=== PATIENT | female | born 1935 | race Caucasian/White ===

== ENCOUNTER 2019-07-08 14:03 | Observation (INO) ==
[2019-07-08] MEDS ORDERED: 0.9 % Sodium Chloride 1,000 ML IVC ONE (14:28)
[2019-07-08 15:03] LABS: Calcium 10.2 mg/dL (8.6-10.3); Potassium 4.1 mEq/L (3.5-5.1)
[2019-07-08 16:05] LABS: Bilirubin,Urine Negative (Negative); Blood,Urine Negative (Negative); Clarity,Urine Clear (Clear); Color,Urine Yellow (Yellow); Glucose,Urine (UA) 500 mg/dL (Normal); Ketones,Urine Negative (Negative); Leukocyte Esterase,Urine Negative (Negative); Nitrite,Urine Negative (Negative); Protein,Urine Negative (Neg-Trace); Urobilinogen,Urine Normal (Normal)
[2019-07-08] MEDS ORDERED: Ondansetron ODT 4 MG TAB.RAPDIS SL PRN (17:06)
[2019-07-08] MEDS ORDERED: Naloxone 0.4 MG/ML INJ IVP PRN (17:06)
[2019-07-08] MEDS ORDERED: D5% in Water 1,000 ML IVC PRN (17:09)
[2019-07-08] MEDS ORDERED: Dextrose Gel 15 GM/37.5 ML TUBE PO PRN ×2 (17:09)
[2019-07-08] MEDS ORDERED: *HR* Dextrose 50 % in Water (Vial) 50 ML VIAL IVP PRN (17:09)
[2019-07-08] MEDS ORDERED: 0.9 % Sodium Chloride 1,000 ML IV ONE (17:11)
[2019-07-08] MEDS: Insulin LISPRO 300 UNITS/3 ML VIAL SQ SCH ×3 (18:33→21:32)
[2019-07-08] MEDS: carvediloL 6.25 MG TABLET PO SCH (18:53)
[2019-07-08 20:39] LABS: Estimated Average Glucose 301 mg/dl
[2019-07-08] MEDS ORDERED: Lisinopril-HCTZ 20-12.5mg TABLET PO SCH (21:00)
[2019-07-08] MEDS: Apixaban 5 MG TABLET PO SCH (21:28)
[2019-07-08] MEDS: hydroCHLOROthiazide 25 MG TABLET PO SCH (21:29)
[2019-07-08] MEDS: lisinopriL 20 MG TABLET PO SCH (21:29)
[2019-07-08] MEDS: Insulin DETEMIR 100 UNIT/ML X5UNITS SQ SCH (21:31)
[2019-07-09 07:44] LABS: Hematocrit 40.8 % (35.3-44.9); Hemoglobin 13.7 g/dL (11.5-15.4); Mean Corpuscular HGB Conc 33.6 g/dL (31.6-35.5); Mean Corpuscular Hemoglobin 29.4 pg (28.0-33.3); Mean Corpuscular Volume 87.6 fL (83.0-100.0); Mean Platelet Volume 12.9 fL (9.4-12.4); Platelet Count 133 K/mcL (140-400); Red Blood Count 4.66 M/mcL (3.82-4.97); White Blood Count 8.8 K/mcL (4.3-11.1)
[2019-07-09] MEDS: Insulin LISPRO 300 UNITS/3 ML VIAL SQ SCH ×7 (07:51→21:03)
[2019-07-09 08:08] LABS: BUN/Creatinine Ratio 18 (6-26); Blood Urea Nitrogen 16 mg/dL (8-23); Calcium 9.8 mg/dL (8.6-10.3); Carbon Dioxide 23 mEq/L (23-29); Chloride 100 mEq/L (98-107); Glucose 118 mg/dL (70-105); Osmolality,Calculated 284 (280-300); Potassium 3.7 mEq/L (3.5-5.1); Sodium 136 mEq/L (136-145); eGFR For African Americans > 60 (> 60); eGFR For Non-African Americans > 60 (> 60)
[2019-07-09] MEDS: amLODIPine 5 MG TABLET PO SCH (08:51)
[2019-07-09] MEDS: Apixaban 5 MG TABLET PO SCH ×2 (08:51→21:03)
[2019-07-09] MEDS: hydroCHLOROthiazide 25 MG TABLET PO SCH ×2 (08:52→21:02)
[2019-07-09] MEDS: carvediloL 6.25 MG TABLET PO SCH ×2 (08:52→16:52)
[2019-07-09] MEDS: Magnesium Oxide 400 MG TABLET PO SCH (08:52)
[2019-07-09] MEDS: lisinopriL 20 MG TABLET PO SCH ×2 (08:52→21:02)
[2019-07-09] MEDS: Cyanocobalamin (B-12) 1,000 MCG TABLET PO SCH (08:52)
[2019-07-09] MEDS: Insulin DETEMIR 100 UNIT/ML X5UNITS SQ SCH (21:04)
[2019-07-10] MEDS: hydroCHLOROthiazide 25 MG TABLET PO SCH ×3 (07:54→17:36)
[2019-07-10] MEDS: lisinopriL 20 MG TABLET PO SCH ×2 (07:56→21:06)
[2019-07-10] MEDS: Insulin LISPRO 300 UNITS/3 ML VIAL SQ SCH ×2 (07:57)
[2019-07-10] MEDS: Apixaban 5 MG TABLET PO SCH ×2 (07:57→21:05)
[2019-07-10] MEDS: Magnesium Oxide 400 MG TABLET PO SCH (07:57)
[2019-07-10] MEDS: carvediloL 6.25 MG TABLET PO SCH ×2 (07:57→17:36)
[2019-07-10] MEDS: Cyanocobalamin (B-12) 1,000 MCG TABLET PO SCH (07:57)
[2019-07-10] MEDS: amLODIPine 5 MG TABLET PO SCH (07:57)
[2019-07-10] MEDS: GlipiZIDE 5 MG TABLET PO SCH ×2 (12:06→21:05)
[2019-07-10] MEDS: *HR* Metformin 500 MG TABLET PO SCH (17:36)
[2019-07-10] MEDS: Insulin DETEMIR 100 UNIT/ML X5UNITS SQ SCH (21:06)
[2019-07-11] MEDS: amLODIPine 5 MG TABLET PO SCH (08:12)
[2019-07-11] MEDS: Apixaban 5 MG TABLET PO SCH (08:12)
[2019-07-11] MEDS: Cyanocobalamin (B-12) 1,000 MCG TABLET PO SCH (08:12)
[2019-07-11] MEDS: GlipiZIDE 5 MG TABLET PO SCH (08:13)
[2019-07-11] MEDS: Magnesium Oxide 400 MG TABLET PO SCH (08:13)
[2019-07-11] MEDS: carvediloL 6.25 MG TABLET PO SCH ×2 (08:13→16:47)
[2019-07-11] MEDS: *HR* Metformin 500 MG TABLET PO SCH (08:13)
[2019-07-11] MEDS: hydroCHLOROthiazide 25 MG TABLET PO SCH ×2 (08:13→16:47)
[2019-07-11] MEDS: lisinopriL 20 MG TABLET PO SCH (11:57)
[2019-07-11 14:42] VITALS: BP 131/74
[2019-07-11] MEDS ORDERED: *HR* Metformin 500 MG TABLET PO SCH (17:00)
== END 2019-07-11 18:30 | disposition home health service (06) ==
LOC: EMEROOPIK 14:03 → INPPIK 14:03
PROVIDERS: ADMIT Family Medicine; ATTEND Family Medicine